=== PATIENT | male | born 1960 | race Asian ===

== ENCOUNTER → 2017-12-22 | Outpatient (CLI) | payer OTHER ==
[~2017-12-22] MED LIST: OMNIPAQUE 350 MG/ML, 100ML BOTTLE ONE
[2017-12-22 11:23] LABS: CREATININE 0.92 mg/dL (0.7-1.3)
== END | disposition home or self-care (01) ==
LOC: RAD 10:37 → MERGE 10:37
PROVIDERS: ATTEND Internal Medicine Gastroenterology
DX: E04.1 Nontoxic single thyroid nodule (principal); N28.1 Cyst of kidney, acquired; R19.5 Other fecal abnormalities; K55.21 Angiodysplasia of colon with hemorrhage
CPT/HCPCS: 36415; 71260; 74177; 82565; Q9967

== ENCOUNTER 2017-12-28 06:50 | Day surgery (SDC) | payer OTHER ==
[~2017-12-28] VITALS: Ht 174 cm; Wt 78.9 kg
[2017-12-28 07:29] VITALS: BP 137/90
[2017-12-28] MEDS ORDERED: METF500T17 PO (07:36)
[2017-12-28] MEDS ORDERED: PIOG15TA22 PO (07:36)
[2017-12-28] MEDS ORDERED: OMEP-110 PO (07:36)
[2017-12-28] MEDS ORDERED: ATOR20TA PO (07:36)
[2017-12-28] MEDS ORDERED: LACTATED RINGERS 1,000 ML IV SCH (07:52)
[2017-12-28] MEDS ORDERED: ACETAMINOPHEN 325 MG TABLET PO PRN (08:00)
[2017-12-28] MEDS ORDERED: OXYcodone 5 MG/5 ML ORAL.SOL UDC PO PRN (08:00)
[2017-12-28] MEDS ORDERED: ONDANSETRON 2MG/ML, 2ML IV PRN (08:00)
[2017-12-28] MEDS ORDERED: FENTANYL PF 100 MCG/2ML IV PRN (08:00)
[2017-12-28] MEDS ORDERED: PROPOFOL 10 MG/ML, 50ML ONE (08:06)
[2017-12-28] MEDS ORDERED: PROPOFOL 10 MG/ML, 20ML ONE (08:06)
== END 2017-12-28 09:47 | disposition home or self-care (01) ==
LOC: OUT 06:50 → MERGE 10:30
PROVIDERS: ATTEND Internal Medicine Gastroenterology
DX: C20 Malignant neoplasm of rectum (principal); E11.9 Type 2 diabetes mellitus without complications; I10 Essential (primary) hypertension; K21.9 Gastro-esophageal reflux disease without esophagitis; E03.9 Hypothyroidism, unspecified
CPT/HCPCS: 45341; 82962; 93005; J2704; J7120

== ENCOUNTER 2018-01-10 08:52 | Inpatient (IN) | payer OTHER ==
[~2018-01-10] VITALS: Ht 174 cm; Wt 84.5 kg
[~2018-01-10 08:52] MED LIST changes: +ATOR20TA PO; +BUPIVACAINE/PF 0.5% ONE; +METF500T17 PO; +OMEP-110 PO; -OMNIPAQUE 350 MG/ML, 100ML BOTTLE ONE; +PIOG15TA22 PO
[2018-01-10] MEDS ORDERED: LACTATED RINGERS 1,000 ML IV SCH (09:08)
[2018-01-10] MEDS ORDERED: [UNRECOGNIZED DRUG - OTHER] PO (09:27)
[2018-01-10] MEDS ORDERED: MULT-758 PO (09:27)
[2018-01-10] MEDS ORDERED: ACETAMINOPHEN 500 MG TABLET PO ONE (09:30)
[2018-01-10] MEDS ORDERED: LIDOCAINE-MPF 1%, 2ML INFIL ONE (09:30)
[2018-01-10] MEDS ORDERED: GABAPENTIN 300 MG CAPSULE PO ONE (09:30)
[2018-01-10] MEDS ORDERED: SCOPOLAMINE PATCH, 1.5MG PATCH.TD72 TD ONE (09:30)
[2018-01-10 09:31] VITALS: BP 136/95
[2018-01-10 09:37] LABS: BASOPHILS # (AUTO) 0.02 x10^3/uL (0-0.1); BASOPHILS % (AUTO) 0 % (0-1); EOSINOPHILS # (AUTO) 0.09 x10^3/uL (0-0.4); EOSINOPHILS % (AUTO) 1 % (1-7); LYMPHOCYTES # (AUTO) 2.82 x10^3/uL (1-3.4); LYMPHOCYTES % (AUTO) 35 % (22-44); MD NO; MEAN CORPUSCULAR HEMOGLOBIN 30.4 pg (27.5-34.5); MEAN CORPUSCULAR HGB CONC 33.2 g/dL (33.2-36.2); MEAN CORPUSCULAR VOLUME 91.5 fL (81-97); MEAN PLATELET VOLUME 6.9 fL (7.4-10.4); MONOCYTES # (AUTO) 0.75 x10^3/uL (0.2-0.8); MONOCYTES % (AUTO) 9 % (2-9); NEUTROPHILS # (AUTO) 4.41 x10^3/uL (1.8-6.8); NEUTROPHILS % (AUTO) 55 % (42-75); PLATELET COUNT 287 x10^3/uL (130-400); RED BLOOD COUNT 5.64 x10^6/uL (4.38-5.82); RED CELL DISTRIBUTION WIDTH 14.1 % (9.4-14.8)
[2018-01-10] MEDS ORDERED: cloniDINE/PF 100 MCG/ML, 10 ML ONE (09:43)
[2018-01-10 09:44] LABS: ALANINE AMINOTRANSFERASE 80 U/L (12-78); ALBUMIN 4.3 g/dL (3.4-5.0); ANION GAP 8 mmol/L (5-15); CALCIUM 8.8 mg/dL (8.5-10.1); CHLORIDE 104 mmol/L (98-107); CREATININE 1.05 mg/dL (0.7-1.3)
[2018-01-10 09:48] LABS: ALKALINE PHOSPHATASE 68 U/L (45-117); BILIRUBIN,TOTAL 0.8 mg/dL (0.2-1.0); TOTAL PROTEIN 8.2 g/dL (6.4-8.2)
[2018-01-10] MEDS ORDERED: CEFOTETAN 2 GM ONE (09:55)
[2018-01-10] MEDS ORDERED: METOPROLOL 1 MG/ML, 5ML ONE (09:55)
[2018-01-10] MEDS ORDERED: DEXAMETHASONE 4 MG/ML, 1ML ONE (09:55)
[2018-01-10] MEDS ORDERED: ONDANSETRON 2MG/ML, 2ML ONE (09:55)
[2018-01-10] MEDS ORDERED: PHENYLEPHRINE 10 MG/ML ONE (09:55)
[2018-01-10] MEDS ORDERED: ROCURONIUM 10 MG/ML,10ML ONE (09:55)
[2018-01-10] MEDS ORDERED: PROPOFOL 10 MG/ML, 20ML ONE (09:55)
[2018-01-10] MEDS ORDERED: HYDROmorphone 1 MG/ML, 1ML IV PRN (10:30)
[2018-01-10] MEDS ORDERED: MEPERIDINE/PF 25MG/0.5ML IVPush PRN (10:30)
[2018-01-10] MEDS ORDERED: OXYcodone 5 MG/5 ML ORAL.SOL UDC PO PRN (10:30)
[2018-01-10] MEDS ORDERED: HALOPERIDOL 5 MG/ML IV PRN (10:30)
[2018-01-10] MEDS ORDERED: FENTANYL PF 100 MCG/2ML IV PRN (10:30)
[2018-01-10] MEDS ORDERED: LABETALOL 5MG/ML, 20ML IV PRN (10:30)
[2018-01-10] MEDS ORDERED: PROMETHAZINE 25 MG/ML, 1ML IV PRN (10:30)
[2018-01-10] MEDS ORDERED: hydrALAzine 20 MG/ML, 1ML IV PRN (10:30)
[2018-01-10] MEDS ORDERED: LORazepam 2 MG/ML, 1ML IVPush PRN ×2 (10:30→14:00)
[2018-01-10] MEDS ORDERED: INDIGO CARMINE 0.8%, 5ML ONE (10:56)
[2018-01-10] MEDS ORDERED: INDOCYANINE GREEN 25 MG VIAL ONE (10:59)
[2018-01-10 11:27] LABS: HEMOGLOBIN A1C 7.6 % (4.2-6.3)
[2018-01-10] MEDS ORDERED: OXYcodone 5 MG/5 ML ORAL.SOL UDC ONE (12:45)
[2018-01-10] MEDS ORDERED: ONDANSETRON 2MG/ML, 2ML IV PRN (14:00)
[2018-01-10] MEDS ORDERED: TRAZODONE 50MG TABLET PO PRN (14:00)
[2018-01-10] MEDS ORDERED: HYDROmorphone 1 MG/ML, 1ML IVPush PRN (14:00)
[2018-01-10] MEDS ORDERED: DIPHENHYDRAMINE 50 MG/ML, 1ML IVPush PRN (14:00)
[2018-01-10] MEDS ORDERED: DIPHENHYDRAMINE 25 MG CAPSULE PO PRN (14:00)
[2018-01-10] MEDS ORDERED: CALCIUM CARBONATE 500 MG TAB.CHEW PO PRN (14:00)
[2018-01-10] MEDS ORDERED: DEXAMETHASONE 4 MG/ML, 1ML IVPush PRN (14:00)
[2018-01-10] MEDS ORDERED: OMEPRAZOLE 20 MG CAPSULE.DR PO PRN (14:00)
[2018-01-10] MEDS ORDERED: SCOPOLAMINE PATCH, 1.5MG PATCH.TD72 TD PRN (14:00)
[2018-01-10] MEDS ORDERED: HALOPERIDOL 5 MG/ML IVPush PRN (14:00)
[2018-01-10] MEDS ORDERED: LORazepam 1MG TABLET PO PRN (14:00)
[2018-01-10] MEDS ORDERED: ACETAMINOPHEN 100 ML IVPB PRN (14:00)
[2018-01-10] MEDS: D5%-0.45NACL+KCL 20MEQ 1,000 ML IV SCH (16:20)
[2018-01-10] MEDS: ACETAMINOPHEN 500 MG TABLET PO SCH ×2 (16:20→22:43)
[2018-01-10] MEDS: OXYcodone IR 5MG TABLET PO PRN ×2 (16:20→19:27)
[2018-01-10] MEDS: INSULIN REGULAR, HUMAN 100 UNITS/ML, 3ML MEDIUM DOSE SS SQ-INSULIN SCH ×2 (17:00→21:12)
[2018-01-10 19:59] VITALS: BP 110/75
[2018-01-10] MEDS: ATORVASTATIN 20 MG TABLET PO SCH (21:00)
[2018-01-10 23:56] VITALS: BP 102/72
[2018-01-11 03:50] VITALS: BP 108/69
[2018-01-11] MEDS: D5%-0.45NACL+KCL 20MEQ 1,000 ML IV SCH ×2 (04:18→18:36)
[2018-01-11] MEDS: ACETAMINOPHEN 500 MG TABLET PO SCH ×4 (05:08→23:10)
[2018-01-11] MEDS: OXYcodone IR 5MG TABLET PO PRN ×4 (05:35→23:58)
[2018-01-11 06:38] LABS: ANION GAP 10 mmol/L (5-15); CALCIUM 8.2 mg/dL (8.5-10.1); CHLORIDE 100 mmol/L (98-107)
[2018-01-11 06:40] LABS: CREATININE 0.98 mg/dL (0.7-1.3)
[2018-01-11] MEDS: INSULIN REGULAR, HUMAN 100 UNITS/ML, 3ML MEDIUM DOSE SS SQ-INSULIN SCH ×4 (07:00→21:48)
[2018-01-11 07:01] LABS: BASOPHILS # (AUTO) 0.03 x10^3/uL (0-0.1); BASOPHILS % (AUTO) 0 % (0-1); EOSINOPHILS % (AUTO) 0 % (1-7); LYMPHOCYTES # (AUTO) 1.73 x10^3/uL (1-3.4); LYMPHOCYTES % (AUTO) 16 % (22-44); MD NO; MEAN CORPUSCULAR HEMOGLOBIN 30.5 pg (27.5-34.5); MEAN CORPUSCULAR HGB CONC 32.9 g/dL (33.2-36.2); MEAN CORPUSCULAR VOLUME 92.8 fL (81-97); MEAN PLATELET VOLUME 7.1 fL (7.4-10.4); MONOCYTES % (AUTO) 10 % (2-9); NEUTROPHILS # (AUTO) 7.83 x10^3/uL (1.8-6.8); NEUTROPHILS % (AUTO) 74 % (42-75); PLATELET COUNT 244 x10^3/uL (130-400); RED BLOOD COUNT 5.01 x10^6/uL (4.38-5.82); RED CELL DISTRIBUTION WIDTH 14.3 % (9.4-14.8)
[2018-01-11 07:51] VITALS: BP 120/86
[2018-01-11] MEDS: CHOLECALCIFEROL 1,000 UNIT TABLET PO SCH (09:51)
[2018-01-11] MEDS: METOCLOPRAMIDE 5 MG/ML, 2ML IVPush SCH ×3 (09:52→23:10)
[2018-01-11] MEDS: HEPARIN 5,000 UNITS/ML, 1ML SQ SCH ×2 (11:48→20:04)
[2018-01-11 12:19] VITALS: BP 115/73
[2018-01-11] MEDS: ATORVASTATIN 20 MG TABLET PO SCH (20:04)
[2018-01-11 21:28] VITALS: BP 117/86
[2018-01-12 02:15] VITALS: BP 110/72
[2018-01-12] MEDS: ACETAMINOPHEN 500 MG TABLET PO SCH ×4 (04:21→22:21)
[2018-01-12] MEDS: OXYcodone IR 5MG TABLET PO PRN ×4 (04:21→19:30)
[2018-01-12] MEDS: HEPARIN 5,000 UNITS/ML, 1ML SQ SCH ×3 (04:22→20:18)
[2018-01-12] MEDS: METOCLOPRAMIDE 5 MG/ML, 2ML IVPush SCH ×4 (04:22→22:21)
[2018-01-12 05:22] LABS: BASOPHILS # (AUTO) 0.03 x10^3/uL (0-0.1); BASOPHILS % (AUTO) 0 % (0-1); EOSINOPHILS # (AUTO) 0.04 x10^3/uL (0-0.4); EOSINOPHILS % (AUTO) 1 % (1-7); LYMPHOCYTES # (AUTO) 2.51 x10^3/uL (1-3.4); LYMPHOCYTES % (AUTO) 26 % (22-44); MD NO; MEAN CORPUSCULAR HEMOGLOBIN 30.3 pg (27.5-34.5); MEAN CORPUSCULAR HGB CONC 33.5 g/dL (33.2-36.2); MEAN CORPUSCULAR VOLUME 90.6 fL (81-97); MEAN PLATELET VOLUME 7.3 fL (7.4-10.4); MONOCYTES # (AUTO) 0.86 x10^3/uL (0.2-0.8); MONOCYTES % (AUTO) 9 % (2-9); NEUTROPHILS # (AUTO) 6.24 x10^3/uL (1.8-6.8); NEUTROPHILS % (AUTO) 64 % (42-75); PLATELET COUNT 218 x10^3/uL (130-400); RED CELL DISTRIBUTION WIDTH 13.7 % (9.4-14.8)
[2018-01-12 05:35] LABS: ANION GAP 7 mmol/L (5-15); CALCIUM 8.3 mg/dL (8.5-10.1); CHLORIDE 107 mmol/L (98-107); CREATININE 0.86 mg/dL (0.7-1.3)
[2018-01-12 07:55] VITALS: BP 130/90
[2018-01-12] MEDS: CHOLECALCIFEROL 1,000 UNIT TABLET PO SCH (07:58)
[2018-01-12] MEDS: D5%-0.45NACL+KCL 20MEQ 1,000 ML IV SCH ×2 (07:58→23:10)
[2018-01-12 08:04] VITALS: BP 100/66
[2018-01-12] MEDS: INSULIN REGULAR, HUMAN 100 UNITS/ML, 3ML MEDIUM DOSE SS SQ-INSULIN SCH ×4 (08:23→20:35)
[2018-01-12 13:05] VITALS: BP 131/91
[2018-01-12] MEDS: ATORVASTATIN 20 MG TABLET PO SCH (19:30)
[2018-01-12 21:12] VITALS: BP 128/77
[2018-01-13 01:05] VITALS: BP 117/78
[2018-01-13] MEDS: OXYcodone IR 5MG TABLET PO PRN ×2 (02:58→07:22)
[2018-01-13 03:32] LABS: BASOPHILS # (AUTO) 0.03 x10^3/uL (0-0.1); BASOPHILS % (AUTO) 0 % (0-1); EOSINOPHILS # (AUTO) 0.14 x10^3/uL (0-0.4); EOSINOPHILS % (AUTO) 2 % (1-7); LYMPHOCYTES # (AUTO) 2.03 x10^3/uL (1-3.4); LYMPHOCYTES % (AUTO) 23 % (22-44); MD NO; MEAN CORPUSCULAR HEMOGLOBIN 30.5 pg (27.5-34.5); MEAN CORPUSCULAR HGB CONC 33.2 g/dL (33.2-36.2); MEAN CORPUSCULAR VOLUME 91.9 fL (81-97); MEAN PLATELET VOLUME 7.2 fL (7.4-10.4); MONOCYTES # (AUTO) 0.74 x10^3/uL (0.2-0.8); MONOCYTES % (AUTO) 8 % (2-9); NEUTROPHILS # (AUTO) 6.07 x10^3/uL (1.8-6.8); NEUTROPHILS % (AUTO) 67 % (42-75); PLATELET COUNT 258 x10^3/uL (130-400); RED BLOOD COUNT 4.82 x10^6/uL (4.38-5.82); RED CELL DISTRIBUTION WIDTH 14.1 % (9.4-14.8)
[2018-01-13 03:39] LABS: ANION GAP 9 mmol/L (5-15); CALCIUM 8.6 mg/dL (8.5-10.1); CHLORIDE 105 mmol/L (98-107)
[2018-01-13 03:47] LABS: CREATININE 0.94 mg/dL (0.7-1.3)
[2018-01-13] MEDS: HEPARIN 5,000 UNITS/ML, 1ML SQ SCH (04:06)
[2018-01-13] MEDS: ACETAMINOPHEN 500 MG TABLET PO SCH (04:06)
[2018-01-13] MEDS: METOCLOPRAMIDE 5 MG/ML, 2ML IVPush SCH (04:06)
[2018-01-13] MEDS: INSULIN REGULAR, HUMAN 100 UNITS/ML, 3ML MEDIUM DOSE SS SQ-INSULIN SCH (06:32)
[2018-01-13 07:56] VITALS: BP 120/82
[2018-01-13] MEDS ORDERED: ACET-1600 PO (08:04)
[2018-01-13] MEDS ORDERED: ENOX40SY4 SQ (08:06)
[2018-01-13] MEDS ORDERED: OXYC-302 PO (08:07)
[2018-01-13] MEDS ORDERED: ENOXAPARIN 30 MG/0.3 ML ONE (08:35)
== END 2018-01-13 09:11 | disposition home or self-care (01) | DRG 331 ==
LOC: ORIP 08:52 → 4NOR 13:19
PROVIDERS: ADMIT Surgery; ATTEND Surgery
PROC: 0DBP4ZZ Excision of Rectum, Percutaneous Endoscopic Approach (ICD-10-PCS; 2018-01-10)
PROC: 8E0W4CZ Robotic Assisted Procedure of Trunk Region, Percutaneous Endoscopic Approach (ICD-10-PCS; 2018-01-10)
PROC: 0DBN4ZZ Excision of Sigmoid Colon, Percutaneous Endoscopic Approach (ICD-10-PCS; principal; 2018-01-10 10:30)
DX: C19 Malignant neoplasm of rectosigmoid junction (principal); K21.9 Gastro-esophageal reflux disease without esophagitis; E11.9 Type 2 diabetes mellitus without complications; M19.90 Unspecified osteoarthritis, unspecified site; E78.00 Pure hypercholesterolemia, unspecified; Z88.8 Allergy status to other drugs, medicaments and biological substances; Z79.899 Other long term (current) drug therapy; Z82.49 Family history of ischemic heart disease and other diseases of the circulatory system; Z83.3 Family history of diabetes mellitus
CPT/HCPCS: 36415; J3490; 80048; 80053; 82378; 82962; 83036; 85025; 86140; 86850; 86900; 88307; 93005; G0378; J1100; J1644; J1815; J2405; J2704; J2710; J3010; J0735; J2370; J2765; J3480; J7120

== ENCOUNTER 2018-03-23 08:21 | Outpatient (CLI) | payer OTHER ==
[~2018-03-23 08:21] MED LIST changes: +ACET-1600 PO; -BUPIVACAINE/PF 0.5% ONE; +ENOX40SY4 SQ; +MULT-758 PO; +OXYC-302 PO; +[UNRECOGNIZED DRUG - OTHER] PO
[2018-03-23] MEDS ORDERED: LIDOCAINE 1%, 10ML ONE (08:30)
== END 2018-03-23 23:59 | disposition home or self-care (01) ==
LOC: RAD 08:21
PROVIDERS: ATTEND Surgery
DX: E04.1 Nontoxic single thyroid nodule (principal)
CPT/HCPCS: 10005; 88173; J3490; 76942

== ENCOUNTER 2020-01-30 23:59 | Emergency (ER) | payer OTHER ==
[~2020-01-30] VITALS: Ht 172.7 cm; Wt 87.0 kg
--- NOTE | 2020-01-31 00:26 | NUR ---
pt walked back to room without incident. does not appear short of breath at this time. pt states he's felt short of breath for about a week. placed on cr monitor. MD long lopez
--- NOTE | 2020-01-31 00:42 | NUR ---
xray to bedside to take portable cxry. pt tolerated well. up to commode. remains on cr monitor.
[2020-01-31 00:56] VITALS: BP 155/86
[2020-01-31 01:08] LABS: ALANINE AMINOTRANSFERASE 109 U/L (12-78); ALBUMIN 3.8 g/dL (3.4-5.0); ANION GAP 7 mmol/L (5-15); CHLORIDE 108 mmol/L (98-107); CREATININE 1.05 mg/dL (0.7-1.3)
[2020-01-31 01:13] LABS: ALKALINE PHOSPHATASE 69 U/L (45-117); BILIRUBIN,TOTAL 0.6 mg/dL (0.2-1.0); TOTAL PROTEIN 7.2 g/dL (6.4-8.2); TROPONIN I < 0.015 ng/mL (0.000-0.045)
[2020-01-31 01:22] LABS: BASOPHILS % (AUTO) 1 % (0-1); EOSINOPHILS % (AUTO) 3 % (1-7); LYMPHOCYTES % (AUTO) 37 % (22-44); MEAN CORPUSCULAR HEMOGLOBIN 30.9 pg (27.5-34.5); MEAN CORPUSCULAR HGB CONC 33.6 g/dL (33.2-36.2); MONOCYTES % (AUTO) 8 % (2-9); NEUTROPHILS % (AUTO) 52 % (42-75); PLATELET COUNT 254 x10^3/uL (130-400); RED BLOOD COUNT 5.19 x10^6/uL (4.38-5.82); RED CELL DISTRIBUTION WIDTH 13.5 % (9.4-14.8)
[2020-01-31 01:35] LABS: MD NO
--- NOTE | 2020-01-31 02:16 | NUR ---
pt a&ox4, no distress at this time, no respiratory distress or chest pain either. pt ambulatory. d/c and f/u instructions given to pt, and he v/u.
== END 2020-01-31 02:18 | disposition home or self-care (01) ==
LOC: ED 01-31 01:08
DX: R06.00 Dyspnea, unspecified (principal); R07.9 Chest pain, unspecified; R06.02 Shortness of breath; I45.10 Unspecified right bundle-branch block
CPT/HCPCS: 36415; 71045; 80053; 83690; 83880; 84484; 85025; 93005; 99285